=== PATIENT | male | born 1965 | race Caucasian/White ===

== ENCOUNTER 2019-12-29 20:17 | Inpatient (IN) ==
[2019-12-29] MEDS ORDERED: NS 0.9% 1000 ml BAG 1,000 ML IV ONE (21:29)
[2019-12-29] MEDS ORDERED: Ondansetron 4 mg VIAL 2 MG/ML 2 ml VIAL IV ONE (21:48)
[2019-12-29 22:40] LABS: INR 2.35 (0.82-1.09)
[2019-12-29 22:47] LABS: Hematocrit 36 % (42-52); Hemoglobin 12.5 g/dL (14.0-18.0); Mean Corpuscular HGB Conc 35 g/dL (31-36); Mean Corpuscular Hemoglobin 37 pg (27-31); Mean Corpuscular Volume 106 fL (80-94); Mean Platelet Volume 10.6 fL (7.4-10.4); Platelet Count 67 10^3/uL (150-450); Red Blood Count 3.42 10^6 /uL (4.18-5.48); Red Cell Distribution Width 16 % (10-15); White Blood Count 5.4 10^3/uL (3.5-10.8)
[2019-12-29 22:54] LABS: Alcohol, S < 10 mg/dL (<10)
[2019-12-29 22:55] LABS: ALT 47 U/L (7-52); Albumin 2.2 g/dL (3.2-5.2); Albumin/Globulin Ratio 0.4 (1-3); Alkaline Phosphatase 104 U/L (34-104); BUN/Creatinine Ratio 21.8 (8-20); Blood Urea Nitrogen 29 mg/dL (6-24); C Reactive Protein 59.18 mg/L (<8.01); CO2 Carbon Dioxide 22 mmol/L (22-32); Calcium 8.2 mg/dL (8.6-10.3); Chloride 94 mmol/L (101-111); EGFR African American 68.3 (>60); EGFR Non-African American 56.5 (>60); Globulin 4.9 g/dL (2-4); Glucose 151 mg/dL (70-100); Lipase 30 U/L (11.0-82.0); Sodium 126 mmol/L (135-145); Total Protein 7.1 g/dL (6.4-8.9)
[2019-12-29 22:58] LABS: AST 149 U/L (13-39); Anion Gap 10 mmol/L (2-11); Potassium 4.7 mmol/L (3.5-5.0)
[2019-12-29 23:00] LABS: Indirect Bilirubin 7.5 mg/dL (0.3-1.0)
[2019-12-29] MEDS ORDERED: Iodixanol (CONTRAST) 320 MG/ML 100 ML SDV IV ONE (23:11)
[2019-12-30 00:34] LABS: ABS Lymphocytes 0.2 10^3/ul (1.0-4.8); ABS Monocytes 0.2 10^3/ul (0-0.8); ABS Neutrophils 4.9 10^3/ul (1.5-7.7); Eosinophil % 0.2 %; Lymphocyte % 4.1 %; Nucleated Red Blood Cells % 0.6
[2019-12-30 00:51] LABS: Hepatitis B Surface Antigen Nonreactive (Nonreactive)
[2019-12-30 00:56] LABS: Hepatitis A Ab IgM Negative (Negative); Hepatitis B Core IgM Nonreactive (Nonreactive)
[2019-12-30] MEDS ORDERED: Ondansetron 4 mg VIAL 2 MG/ML 2 ml VIAL IV PRN (01:02)
[2019-12-30 01:08] LABS: Hepatitis C Antibody Negative (Negative)
[2019-12-30 01:10] LABS: Urine Sodium Concentration < 18 mmol/L
[2019-12-30 01:14] LABS: Urine Appearance Cloudy; Urine Bilirubin 1+ (Negative); Urine Blood Negative (Negative); Urine Color Amber; Urine Glucose Negative (Negative); Urine Ketones Negative (Negative); Urine Nitrite Negative (Negative); Urine Protein 1+(30 mg/dL) (Negative); Urine Specific Gravity 1.026 (1.010-1.030); Urine Urobilinogen Positive (Negative)
[2019-12-30 01:19] LABS: Urine Creatinine Concentration 252.94 mg/dL
[2019-12-30 01:23] LABS: Urine Bacteria 1+ (Absent); Urine Red Blood Cell Trace(0-2/hpf) (Absent); Urine White Blood Cell Trace(0-5/hpf) (Absent)
[2019-12-30 01:25] LABS: Acetaminophen < 15 mcg/mL
[2019-12-30 01:33] LABS: Magnesium 1.8 mg/dL (1.9-2.7)
[2019-12-30 04:09] LABS: BUN/Creatinine Ratio 24.2 (8-20); EGFR African American 68.9 (>60); Potassium 4.2 mmol/L (3.5-5.0)
[2019-12-30 04:34] LABS: Hematocrit 33 % (42-52); Hemoglobin 11.6 g/dL (14.0-18.0); Mean Corpuscular HGB Conc 35 g/dL (31-36); Mean Corpuscular Hemoglobin 37 pg (27-31); Mean Corpuscular Volume 104 fL (80-94); Mean Platelet Volume 10.6 fL (7.4-10.4); Platelet Count 61 10^3/uL (150-450); Red Blood Count 3.18 10^6 /uL (4.18-5.48); Red Cell Distribution Width 15 % (10-15); White Blood Count 6.1 10^3/uL (3.5-10.8)
[2019-12-30 04:35] LABS: ABS Lymphocytes 0.2 10^3/ul (1.0-4.8); ABS Monocytes 0.5 10^3/ul (0-0.8); ABS Neutrophils 5.1 10^3/ul (1.5-7.7); Eosinophil % 0.2 %; Hematocrit 34 % (42-52); Hemoglobin 11.9 g/dL (14.0-18.0); Lymphocyte % 2.7 %; Mean Corpuscular HGB Conc 35 g/dL (31-36); Mean Corpuscular Hemoglobin 37 pg (27-31); Mean Corpuscular Volume 105 fL (80-94); Mean Platelet Volume 11.5 fL (7.4-10.4); Nucleated Red Blood Cells % 0.5; Platelet Count 68 10^3/uL (150-450); Red Blood Count 3.27 10^6 /uL (4.18-5.48); Red Cell Distribution Width 15 % (10-15); White Blood Count 5.9 10^3/uL (3.5-10.8)
[2019-12-30] MEDS ORDERED: NS 0.9% 1000 ml BAG 1,000 ML IV ONE ×2 (04:41→10:23)
[2019-12-30 04:42] LABS: Albumin 1.9 g/dL (3.2-5.2); Albumin/Globulin Ratio 0.4 (1-3); BUN/Creatinine Ratio 26.2 (8-20); Calcium 7.9 mg/dL (8.6-10.3); EGFR African American 72.7 (>60); EGFR Non-African American 60.1 (>60); Globulin 4.4 g/dL (2-4); Potassium 4.1 mmol/L (3.5-5.0); Total Protein 6.3 g/dL (6.4-8.9)
[2019-12-30 04:52] LABS: Indirect Bilirubin 6.2 mg/dL (0.3-1.0); Total Bilirubin 12.4 mg/dL (0.2-1.0)
[2019-12-30] MEDS: cefTRIAXone 1 gm/50 mL NS BAG 1 GM/50 ML BAG IVPB SCH (05:19)
[2019-12-30 08:04] LABS: ABS Lymphocytes 0.2 10^3/ul (1.0-4.8); ABS Monocytes 0.7 10^3/ul (0-0.8); ABS Neutrophils 5.2 10^3/ul (1.5-7.7); Eosinophil % 0.7 %; Lymphocyte % 2.5 %; Nucleated Red Blood Cells % 0.2
[2019-12-30] MEDS ORDERED: PrednisoLONE 3 MG/ML ORAL.SOLU 15 MG/5 ML ORAL.SOLN PO SCH (09:00)
[2019-12-30] MEDS: metroNIDAZOLE IV 500 MG/100ML 500 MG/100 ML BAG IVPB SCH ×2 (10:24→16:20)
[2019-12-30 11:11] LABS: % Iron Saturation 87 % (15-55); Iron 147 ug/dL (50-212); Total Iron Binding Capacity 169 mcg/dL (250-450); Transferrin 121 mg/dL (203-362); Unsaturated Iron Binding < 154 ug/dL
[2019-12-30 11:28] LABS: Ferritin 1422.8 ng/mL (24-336)
[2019-12-30 11:36] LABS: Folate 7.44 ng/mL (>3.99); Vitamin B12 1196 pg/mL (180-914)
[2019-12-30 11:49] LABS: Total Bilirubin 13.8 mg/dL (0.2-1.0)
[2019-12-30] MEDS ORDERED: NS 0.9% 1000 ml BAG 1,000 ML IV SCH (12:00)
[2019-12-30] MEDS ORDERED: NS 0.9% 500 ml BAG 500 ML IV ONE (13:53)
[2019-12-31] MEDS: cefTRIAXone 1 gm/50 mL NS BAG 1 GM/50 ML BAG IVPB SCH (04:40)
[2019-12-31 06:13] LABS: INR 3.03 (0.82-1.09)
[2019-12-31 06:30] LABS: Hematocrit 33 % (42-52); Hemoglobin 11.2 g/dL (14.0-18.0); Mean Corpuscular HGB Conc 34 g/dL (31-36); Mean Corpuscular Hemoglobin 36 pg (27-31); Mean Corpuscular Volume 106 fL (80-94); Mean Platelet Volume 11.3 fL (7.4-10.4); Platelet Count 63 10^3/uL (150-450); Red Blood Count 3.09 10^6 /uL (4.18-5.48); Red Cell Distribution Width 15 % (10-15); White Blood Count 9.4 10^3/uL (3.5-10.8)
[2019-12-31 06:34] LABS: Albumin 1.8 g/dL (3.2-5.2); Albumin/Globulin Ratio 0.4 (1-3); BUN/Creatinine Ratio 28.6 (8-20); Calcium 7.6 mg/dL (8.6-10.3); EGFR African American 41.9 (>60); EGFR Non-African American 34.7 (>60); Globulin 4.2 g/dL (2-4); Indirect Bilirubin 5.1 mg/dL (0.3-1.0); Total Bilirubin 11.1 mg/dL (0.2-1.0)
[2019-12-31 08:00] LABS: Acanthocytes 1+
[2019-12-31] MEDS ORDERED: Lactated Ringers 1000 ml BAG 1,000 ML IV SCH (08:00)
[2019-12-31 08:26] LABS: ABS Neutrophils 7.8 10^3/ul (1.5-7.7)
[2019-12-31 08:27] LABS: ABS Basophils 0.1 10^3/ul (0-0.2); ABS Eosinophils 0.1 10^3/ul (0-0.6)
[2019-12-31] MEDS ORDERED: Lorazepam PYXIS KEY PRN ×2 (09:26→17:09)
[2019-12-31] MEDS: LORazepam 2 mg VIAL 1 ml IM SCH ×3 (10:42→14:54)
[2019-12-31] MEDS ORDERED: Phytonadione Oral Solution 5 MG/25 ML UDC PO ONE (11:11)
[2019-12-31] MEDS ORDERED: NS 0.9% 500 ml BAG 500 ML IV SCH ×2 (14:00→16:12)
[2019-12-31] MEDS ORDERED: Rocuronium 50 mg VIAL 10 mg/ml 5 ml VIAL (50 mg) ONE (16:41)
[2019-12-31] MEDS ORDERED: Succinylcholine 200 mg VIAL 20 mg/ml 10 ml VIAL (200 mg) ONE ×2 (16:41→17:29)
[2019-12-31] MEDS ORDERED: Octreotide Acetate 100 mcg/ml 50 MCG in NS 0.9% 50 ML 50 ML IV ONE (17:00)
[2019-12-31] MEDS ORDERED: Pantoprazole 80 mg in NS BAG 80 MG/250 ML BAG IV SCH (17:00)
[2019-12-31] MEDS ORDERED: Lactulose 30 ml UDC PO SCH (17:00)
[2019-12-31] MEDS ORDERED: LORazepam 2 mg VIAL 1 ml IV PUSH ONE (17:09)
[2019-12-31] MEDS ORDERED: fentaNYL 250 mcg/5 ml 50 MCG/ML 5 ml VIAL (250 MCG) ONE (17:26)
[2019-12-31] MEDS ORDERED: Etomidate 40 mg/20 ml (2 MG/ML) 20 ml VIAL (40 mg) ONE (17:27)
[2019-12-31] MEDS ORDERED: Octreotide Acetate 500 MCG in NS 0.9% 100 ml BAG 100 ML IV SCH (17:30)
[2019-12-31] MEDS ORDERED: Propofol 10 mg/ml 100 ML BTL 100 ML ONE ×2 (17:34→19:32)
[2019-12-31] MEDS ORDERED: LORazepam 2 mg VIAL 1 ml ONE (17:57)
[2019-12-31] MEDS ORDERED: Albumin Human 25% 25 GM/100 ML IV SCH (18:00)
[2019-12-31 19:07] VITALS: BP 109/70
[2019-12-31] MEDS ORDERED: Propofol* 20 ML VIAL - FOR IV LINE PRIMING ONLY SCH (20:00)
[2019-12-31] MEDS ORDERED: Propofol 10 mg/ml 100 ML BTL 100 ML IV SCH (20:00)
[2020-01-01 10:34] LABS: Ceruloplasmin 21.3 mg/dL
[2020-01-02 13:23] LABS: Smooth Muscle Antibody Negative (Negative)
[2020-01-02 15:00] LABS: Mitochondria M2 Antibody <0.1 U
[2020-01-09 02:30] LABS: Hemochromatosis Result Summary NEGATIVE; Hemochromatosis Specimen WB Whole Blood
== END 2019-12-31 19:50 | disposition short-term general hospital (02) | DRG 871 ==
LOC: ED 20:17 → MEDTELE 12-30 00:01 → MED 12-30 09:24 → ICU 12-31 17:56
PROVIDERS: ADMIT Internal Medicine; ATTEND Internal Medicine